=== PATIENT | female | born 1955 | race Caucasian/White ===

== ENCOUNTER → 2017-05-24 | Outpatient (CLI) | payer OTHER ==
--- NOTE | 2017-05-24 07:45 | DIAGNOSTIC IMAGING REPORT ---
FUSION CT SINUSES W/O CLINICAL HISTORY: J32.9 Chronic sinusitis COMPARISON STUDY: No previous studies for comparison. FINDINGS: Images were acquired helically the transverse plane. Coronal and sagittal reformatted images were performed. A dose reduction technique anterior to the principles of ALARA was utilized. No orbital masses are visualized. There is no hydrocephalus. There are bilateral mastoid effusions. There is a small fluid/soft tissue within the right middle ear cavity. There is a small focus of mucosal thickening within the base of the left maxillary sinus. The max or sinuses are otherwise clear. The ostiomeatal units are widely patent bilaterally. There is pneumatization of the left middle turbinate. The ethmoid frontal and sphenoid sinuses are clear. The ethmoid notches are unprotected. The olfactory grooves measure 7 mm in depth bilaterally IMPRESSION: 1. Bilateral mastoid effusions right greater than left 2. Small amount of fluid/soft tissue within the right middle ear cavity 3. The ostiomeatal units are patent bilaterally Electronically signed by: Rusty Maria M.D. 05/24/2017 7:44 AM Dictated Date/Time: 05/24/2017 7:39 AM
== END | disposition home or self-care (01) ==
LOC: C.CTS 07:08
DX: J32.9 Chronic sinusitis, unspecified (principal)